=== PATIENT | female | born 1990 | race Caucasian/White ===

== ENCOUNTER 2019-01-14 17:06 | Emergency (ER) | payer OTHER ==
[~2019-01-14] VITALS: Ht 160 cm; Wt 43.1 kg
--- NOTE | 2019-01-14 17:53 | NUR ---
CALLED FOR TRIAGE -- NO RESPONSE. WILL CONTINUE TO TRY.
--- NOTE | 2019-01-14 18:02 | NUR ---
CALLED AGAIN FOR POOL. NO RESPONSE.
[2019-01-14 18:05] VITALS: BP 114/68
--- NOTE | 2019-01-14 18:08 | NUR ---
TRIAGE COMPLETE OKAY TO WAIT IN LOBBY FOR BED IN ED.
--- NOTE | 2019-01-14 20:44 | NUR ---
PT AMBULATED TO BED 09
--- NOTE | 2019-01-14 20:45 | NUR ---
28 YO FEMALE COMES TO ED FOR + HCG RESULT @ HOME. PT STATES SHE HAS IUD IMPLANT. PT DENIES ABD PAIN, N/V/D. DENIES BLEEDING. PT DENIES PMH. DENIES MEDS. SADE LOCKED IN LOWEST POSITION. WILL UPDATE ERMD. HX: DENIES MEDS: DENIES ALLERGIES: DENIES
[2019-01-14 21:25] VITALS: BP 114/68
--- NOTE | 2019-01-14 21:25 | NUR ---
Patient discharged with v/s stable. Written and verbal after care instructions given and explained BY DR WASHINGTON. Patient verbalized understanding. Ambulatory with steady gait. All questions addressed prior to discharge BY DR WASHINGTON. Advised to follow up with PMD.
== END 2019-01-14 21:25 | disposition home or self-care (01) ==
LOC: MED 17:06
DX: Z32.02 Encounter for pregnancy test, result negative (principal)
CPT/HCPCS: 36415; 84702; 99283

== ENCOUNTER 2020-09-27 13:54 | Emergency (ER) | payer OTHER ==
[~2020-09-27] VITALS: Ht 160 cm; Wt 44.5 kg
[2020-09-27 14:11] VITALS: BP 121/100
[2020-09-27] MEDS ORDERED: POLY10SO OP (14:28)
--- NOTE | 2020-09-27 14:35 | NUR ---
Pt presents to ED for eye problems. Pt reports she fell asleep with eyelashes on x3 nights ago. Pt woke up with itching, tearing eyes with yellow drainage to left eye. Swelling is noted to left eye. Right eye sclera is also red, tearing and irritated. Pt tried using multiple different eye drops without any relief. Pain level 3-4/10 w/movement. Pt reports it being more painful when she closes her eyes. Allergies: NKA Med hx: none
--- NOTE | 2020-09-27 14:43 | NUR ---
Patient discharged with v/s stable. Written and verbal after care instructions given and explained. Pt encouraged to keep washing hands and avoid rubbing eyes. Patient alert, oriented and verbalized understanding of instructions. Ambulatory with steady gait. All questions addressed prior to discharge. ID band removed. Patient advised to follow up with PMD. Rx of polymyxin B sulf given. Patient educated on indication of medication including possible reaction and side effects. Opportunity to ask questions provided and answered.
[2020-09-27 14:44] VITALS: BP 121/100
== END 2020-09-27 14:43 | disposition home or self-care (01) ==
LOC: MED 13:54
DX: H10.32 Unspecified acute conjunctivitis, left eye (principal)
CPT/HCPCS: 99283

== ENCOUNTER 2021-03-04 21:44 | Emergency (ER) | payer OTHER ==
[~2021-03-04] VITALS: Ht 160 cm; Wt 46.7 kg
[~2021-03-04 21:44] MED LIST: POLY10SO OP
[2021-03-04 21:50] VITALS: BP 129/66
--- NOTE | 2021-03-04 21:50 | NUR ---
to bed ambulatory
[2021-03-04 22:00] VITALS: BP 129/66
--- NOTE | 2021-03-04 22:15 | NUR ---
RECEIVED IN BED 11 WITH C/O DIZZINESS AND PAIN RUNNING DOWN RIGHT NECK, DOWN RIGHT ARM AND TO RLE S/P FALL 3 DAYS AGO WHERE PT HIT HEAD. 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 CM = SR WITHOUT ECTOPY
--- NOTE | 2021-03-04 22:16 | NUR ---
ERMD at bedside.
[2021-03-04] MEDS ORDERED: diazePAM 5 MG TAB PO ONE (22:25)
--- NOTE | 2021-03-04 22:37 | NUR ---
pt taken to ct.
--- NOTE | 2021-03-04 22:49 | NUR ---
RETURNED FROM CT
--- NOTE | 2021-03-04 22:49 | NUR ---
pt back from ct.
--- NOTE | 2021-03-04 23:00 | NUR ---
RESTING COMFORTABLY IN NAD
[2021-03-05] MEDS ORDERED: ACET-10509 PO (00:14)
[2021-03-05] MEDS ORDERED: DIAZ5TAB7 PO (00:14)
[2021-03-05 00:20] VITALS: BP 129/66
--- NOTE | 2021-03-05 00:20 | NUR ---
Patient discharged with v/s stable. Written and verbal after care instructions given and explained. Patient alert, oriented and verbalized understanding of instructions. Ambulatory with steady gait. All questions addressed prior to discharge. ID band removed. Patient advised to follow up with PMD. Rx of TYLENOL EXTRA STRENGTH & VALIUM given. Patient educated on indication of medication including possible reaction and side effects. Opportunity to ask questions provided and answered.
== END 2021-03-05 00:20 | disposition home or self-care (01) ==
LOC: MED 21:44
DX: S16.1XXA Strain of muscle, fascia and tendon at neck level, initial encounter (principal); S09.90XA Unspecified injury of head, initial encounter; R20.0 Anesthesia of skin; Z79.899 Other long term (current) drug therapy; V49.9XXA Car occupant (driver) (passenger) injured in unspecified traffic accident, initial encounter; Y93.89 Activity, other specified; Y92.89 Other specified places as the place of occurrence of the external cause; Y99.8 Other external cause status
CPT/HCPCS: 70450; 72125; 99285

== ENCOUNTER 2021-08-08 14:44 | Emergency (ER) | payer MEDICAID, OTHER ==
[~2021-08-08] VITALS: Ht 160 cm; Wt 49.9 kg
[~2021-08-08 14:44] MED LIST changes: +ACET-10509 PO; +DIAZ5TAB8 PO
[2021-08-08 14:57] VITALS: BP 95/63
[2021-08-08] MEDS ORDERED: TETRACAINE HCL/PF 0.5% OPTH 4 ML BTL OP ONE (15:15)
[2021-08-08] MEDS ORDERED: FLUORESCEIN OPTH STRIP 1 MG OP ONE (15:15)
--- NOTE | 2021-08-08 15:28 | NUR ---
EYE ASSESMENT BOTH 20/40 RIGHT 20/70 LEFT 20/40
--- NOTE | 2021-08-08 15:40 | NUR ---
RADHA ROOT AT BEDSIDE EVALUATING PATIENT
--- NOTE | 2021-08-08 15:47 | NUR ---
30 Y/O FEMALE C/O LEFT EYE PAIN, REDNESS, SENSITIVE TO LIGHT X 2 DAYS. PATIENT STATES SHE BELIEVES SOMETHING WENT INTO HER EYE AND CAUSED IRRITATION. NKDA
[2021-08-08] MEDS ORDERED: OFLOS LEFT EYE (16:04)
--- NOTE | 2021-08-08 16:09 | NUR ---
LEFT EYE IRRIGATED WITH NORMAL SALINE PA NOTIFIED.
--- NOTE | 2021-08-08 16:26 | NUR ---
Patient discharged with v/s stable. Written and verbal after care instructions given. Patient alert, oriented and verbalized understanding of instructions. Ambulatory with steady gait. All questions addressed prior to discharge. ID band removed. Patient advised to follow up with PMD. Rx of OFLOXACIN given. Opportunity to ask questions provided and answered. WORK NOTE HANDED TO PATIENT.
--- NOTE | 2021-08-08 16:27 | NUR ---
Chart checked and completed. The patient's care was reviewed and supervised by Mariana Brewer RN.
== END 2021-08-08 17:09 | disposition home or self-care (01) ==
LOC: MED 14:44
DX: T15.92XA Foreign body on external eye, part unspecified, left eye, initial encounter (principal); Z79.899 Other long term (current) drug therapy; X58.XXXA Exposure to other specified factors, initial encounter; Y93.89 Activity, other specified; Y92.89 Other specified places as the place of occurrence of the external cause; Y99.9 Unspecified external cause status
CPT/HCPCS: 65205; 99284

== ENCOUNTER 2023-04-21 00:40 | Observation (INO) | payer MEDICAID, OTHER ==
[2023-04-21] VITALS (7 sets, daily range): BP systolic 103–125; BP diastolic 65–79; PULSE 82–96; RESP 15–26; TEMP 97–98.2; O2SAT 98–100
[~2023-04-21] VITALS: Ht 162.6 cm; Wt 43.1 kg
[~2023-04-21 00:40] MED LIST changes: +OFLOS LEFT EYE
[2023-04-21] MEDS ORDERED: LORazepam 1 MG TAB PO ONE (01:40)
[2023-04-21] MEDS ORDERED: GLUCAGON 1 MG VIAL IVP ONE (02:20)
[2023-04-21] MEDS ORDERED: LORazepam 2 MG/ML VIAL IVP ONE (02:20)
[2023-04-21 05:46] LABS: BASOPHILS % (AUTO) 0.6 % (0.0-2.0); EOSINOPHILS % (AUTO) 0.3 % (0.0-4.0); HEMATOCRIT 36.4 % (36-48); HEMOGLOBIN 12.4 g/dL (12.0-16.0); LYMPHOCYTES # (AUTO) 1.1 K/uL (2.5-16.5); LYMPHOCYTES % (AUTO) 14.2 % (20.5-51.1); MEAN CORPUSCULAR HEMOGLOBIN 29 pg (27-31); MEAN CORPUSCULAR HGB CONC 34 g/dL (33-37); MEAN CORPUSCULAR VOLUME 86.2 fL (80-94); MONOCYTES # (AUTO) 0.6 K/uL (0.8-1.0); NEUTROPHILS # (AUTO) 5.9 K/uL (1.8-7.7); NEUTROPHILS % (AUTO) 76.9 % (42.2-75.2); PLATELET COUNT (AUTO) 214 K/uL (140-450); RED BLOOD CELL COUNT(AUTO) 4.22 MIL/uL (4.20-5.40); RED CELL DISTRIBUTION WIDTH 13.4 % (11.6-13.7); WHITE BLOOD COUNT (AUTO) 7.7 K/uL (4.8-10.8)
[2023-04-21 05:55] LABS: ANION GAP 11.6 (8-16); CALCIUM 8.7 mg/dL (8.5-10.1); CARBON DIOXIDE 29.7 mmol/L (21-32); CREATININE 0.6 mg/dL (0.6-1.3); POTASSIUM 3.3 mmol/L (3.5-5.1)
[2023-04-21] MEDS ORDERED: NACL 0.9% 1,000 ML IV SCH (07:25)
[2023-04-21] MEDS ORDERED: LORazepam 1 MG TAB PO PRN (07:25)
[2023-04-21] MEDS ORDERED: ONDANSETRON 4 MG/2 ML VIAL IVP PRN (07:25)
[2023-04-21] MEDS ORDERED: MORPHINE SULFATE 4 MG/ML SYR IVP PRN (07:25)
[2023-04-21] MEDS ORDERED: LORazepam 2 MG/ML VIAL IVP PRN (11:15)
[2023-04-21] MEDS ORDERED: MIDAZOLAM 5 MG/5 ML VIAL ONE (11:24)
[2023-04-21] MEDS ORDERED: diphenhydrAMINE 50 MG/ML VIAL ONE (11:24)
[2023-04-21] MEDS ORDERED: fentaNYL citrate 0.05 MG/ML VIAL ONE (11:24)
[2023-04-21] MEDS ORDERED: SUCCINYLCHOLINE CHLORIDE 200 MG/10 ML VIAL IVP ONE (12:10)
[2023-04-21] MEDS ORDERED: ePHEDrine 50 MG/ML VIAL ONE (12:10)
[2023-04-21] MEDS ORDERED: PROPOFOL 200 MG/20 ML VIAL IV ONE (12:10)
[2023-04-21] MEDS ORDERED: FLUMAZENIL 0.5 MG/5 ML VIAL IVP ONE (12:12)
[2023-04-21] MEDS ORDERED: fentaNYL citrate 0.05 MG/ML VIAL IVP ONE (13:35)
[2023-04-21] MEDS ORDERED: MIDAZOLAM 2 MG/2 ML VIAL IVP ONE (13:35)
== END 2023-04-21 18:30 | disposition home or self-care (01) ==
LOC: MED 00:40 → MMU 07:25 → INTOOBSV 07:25 → MIC 07:39
PROVIDERS: ADMIT Internal Medicine; ATTEND Internal Medicine
DX: T18.128A Food in esophagus causing other injury, initial encounter (principal); K22.2 Esophageal obstruction; F12.90 Cannabis use, unspecified, uncomplicated; F41.9 Anxiety disorder, unspecified; F50.9 Eating disorder, unspecified; Z79.899 Other long term (current) drug therapy
CPT/HCPCS: 36415; 70360; 71250; 80048; 85025; 92526; 96372; 96374; 96375; 99291; G0378; J0330; J1610; J1644; J2060; J2250; J2704; J3010; J3490; 88300; J1200